=== PATIENT | female | born 1980 | race Caucasian/White ===

== ENCOUNTER 2017-09-12 18:22 | Emergency (ER) | payer BC ==
[2017-09-12] MEDS ORDERED: Sodium Chloride 0.9% 10 ML Syringe FLUSH PRN (19:07)
[2017-09-12] MEDS ORDERED: Sodium Chloride 0.9% 1,000 ML IV ONE (19:08)
--- NOTE | 2017-09-12 19:52 | EDM.PDOC ---
ED HPI GENERAL MEDICAL PROBLEM - General Chief Complaint: Abdominal Pain Stated Complaint: ABDOMINAL PAIN AND DISTENTION Time Seen by Provider: 09/12/17 18:45 Source of Information: Reports: Patient History Limitations: Reports: No Limitations - History of Present Illness INITIAL COMMENTS - FREE TEXT/NARRATIVE: Patient is a 37-year-old female presents ED complaining of generalized abdominal discomfort more associated to the left side of her abdomen. Has been present for the past 6 days. Was evaluated yesterday by her primary care provider Nasreen Rao with blood work and CT the abdomen and pelvis obtained. She was informed that there was inflammation to her colon and thus should return to the ED if she should have any worsening symptoms. Pain is persisted with no really significant increase noted. She is concerned because the pain is persisting. She does not clearly know what the diagnosis is. She's never had a colonoscopy. She is mildly nauseated at times. Last ate oatmeal this morning. Has been having multiple BMs and also passing gas. No blood present with her stool. She has taken may citrate yesterday and also this a.m. with no significant improvements. She does feel constipated and distended. She' s had no fever and or dysuria. She has a history of appendectomy and also depression. She is on nortriptyline, metoprolol tartrate, and Prozac. Denies being . Left Lower Abdomen Pain Score (Numeric/FACES): 10 - Related Data Allergies Allergy/AdvReac Type Severity Reaction Status Date / Time codeine Allergy Airway Verified 09/12/17 18:33 Tightness Home Meds: Home Meds FLUoxetine HCl [Prozac] 20 mg PO DAILY 09/12/17 [History] Metoprolol Tartrate 12.5 mg PO DAILY 09/12/17 [History] Multivitamin with Minerals [Multiple Vitamin] 1 cap PO DAILY 09/12/17 [History] Nortriptyline 75 mg PO DAILY 09/12/17 [History] Past Medical History Psychiatric History: Reports: Depression - Past Surgical History GI Surgical History: Reports: Appendectomy Social & Family History - Tobacco Use Smoking Status *Q: Former Smoker Used Tobacco, but Quit: Yes Month/Year Tobacco Last Used: one month Second Hand Smoke Exposure: No - Caffeine Use Caffeine Use: Reports: Coffee - Recreational Drug Use Recreational Drug Use: No ED ROS GENERAL - Review of Systems Review Of Systems: ROS reveals no pertinent complaints other than HPI. ED EXAM, GI/ABD - Physical Exam Exam: See Below Exam Limited By: No Limitations General Appearance: Alert, WD/WN, Mild Distress Eyes: Bilateral: Normal Appearance Ears: Hearing Grossly Normal Nose: Normal Inspection Throat/Mouth: Normal Voice, No Airway Compromise, Other (Moist oromucosa) Neck: Normal Inspection, Supple Respiratory/Chest: No Respiratory Distress, Lungs Clear, Normal Breath Sounds, No Accessory Muscle Use Cardiovascular: Normal Peripheral Pulses, Regular Rate, Rhythm GI/Abdominal Exam: Normal Bowel Sounds, Soft, No Organomegaly, No Distention, Tender (Generalized with increased focus noted to the left side of the abdomen.) Back Exam: Normal Inspection. No: CVA Tenderness (L), CVA Tenderness (R) Extremities: Normal Inspection Neurological: Alert, Oriented, CN II-XII Intact, Normal Cognition, No Motor/ Sensory Deficits Psychiatric: Normal Affect, Normal Mood Skin Exam: Warm, Dry, Intact, Normal Color, No Rash Course - Vital Signs Last Recorded V/S: Last Vital Signs Temp 98.1 F 09/12/17 18:29 Pulse 73 09/12/17 18:29 Resp 18 09/12/17 18:29 BP 124/65 09/12/17 18:29 Pulse Ox 100 09/12/17 18:29 - Orders/Labs/Meds Orders: Active Orders 24 hr Category Date Time Status Peripheral IV Care [RC] . DIRECTED Care 09/12/17 19:08 Active Abdomen 2V AP Flat Upright [CR] Stat Exams 09/12/17 19:07 Taken Sodium Chloride 0.9% [Normal Saline] 1,000 ml Med 09/12/17 19:08 Active IV ASDIRECTED Sodium Chloride 0.9% [Saline Flush] Med 09/12/17 19:07 Active 10 ml FLUSH ASDIRECTED PRN Peripheral IV Insertion Adult [OM.PC] Routine Oth 09/12/17 19:07 Ordered Medication Orders Sodium Chloride (Normal Saline) 1,000 mls @ 250 mls/hr IV ASDIRECTED ONE Stop: 09/12/17 23:07 Last Admin: 09/12/17 19:31 Dose: 250 mls/hr Sodium Chloride (Saline Flush) 10 ml FLUSH ASDIRECTED PRN PRN Reason: Keep Vein Open Last Admin: 09/12/17 19:31 Dose: 10 ml Labs: Laboratory Tests 09/12/17 09/12/17 09/12/17 Range/Units 19:20 19:20 20:11 WBC 5.18 (3.98-10.04) K/mm3 RBC 4.45 (3.98-5.22) M/mm3 Hgb 14.1 (11.2-15.7) gm/L Hct 42.8 (34.1-44.9) % MCV 96.2 H (79.4-94.8) fl MCH 31.7 (25.6-32.2) pg MCHC 32.9 (32.2-35.5) g/dl RDW Std Deviation 45.4 (36.4-46.3) fL Plt Count 179 L (182-369) K/mm3 MPV 9.5 (9.4-12.3) fl Neutrophils % (Manual) 56 (40-60) % Band Neutrophils % 0 (0-10) % Lymphocytes % (Manual) 35 (20-40) % Atypical Lymphs % 0 % Monocytes % (Manual) 6 (2-10) % Eosinophils % (Manual) 2 (0.7-5.8) % Basophils % (Manual) 1 (0.1-1.2) Platelet Estimate Adequate RBC Morph Comment Normal Sodium 144 (136-145) mEq/L Potassium 3.8 (3.5-5.1) mEq/L Chloride 105 (98-107) mEq/L Carbon Dioxide 28 (21-32) mEq/L Anion Gap 14.8 (5-15) BUN 7 (7-18) mg/dL Creatinine 1.0 (0.55-1.02) mg/dL Est Cr Clr Drug Dosing 79.72 mL/min Estimated GFR (MDRD) > 60 (>60) mL/min BUN/Creatinine Ratio 7.0 L (14-18) Glucose 91 (74-106) mg/dL Calcium 9.0 (8.5-10.1) mg/dL Total Bilirubin 0.6 (0.2-1.0) mg/dL AST 21 (15-37) U/L ALT 23 (14-59) U/L Alkaline Phosphatase 90 (46-116) U/L C-Reactive Protein 2.1 H* (<1.0) mg/dL Total Protein 8.0 (6.4-8.2) g/dl Albumin 4.4 (3.4-5.0) g/dl Globulin 3.6 gm/dL Albumin/Globulin Ratio 1.2 (1-2) Lipase 151 (73-393) U/L Urine Color Yellow (Yellow) Urine Appearance Clear (Clear) Urine pH 7.5 (5.0-8.0) Ur Specific [place] 1.015 (1.005-1.030) Urine Protein Negative (Negative) Urine Glucose (UA) Negative (Negative) Urine Ketones Negative (Negative) Urine Occult Blood Negative (Negative) Urine Nitrite Negative (Negative) Urine Bilirubin Negative (Negative) Urine Urobilinogen 0.2 (0.2-1.0) Ur Leukocyte Esterase Negative (Negative) Urine RBC 0-5 (0-5) /hpf Urine WBC 0-5 (0-5) /hpf Ur Epithelial Cells 0-5 (0-5) /hpf Urine Bacteria Few (FEW) /hpf Urine Mucus Not seen (FEW) /hpf Meds: Medications Generic Name Dose Route Start Last Admin Trade Name Freq PRN Reason Stop Dose Admin Sodium Chloride 1,000 mls @ 250 mls/hr 09/12/17 19:08 09/12/17 19:31 Normal Saline IV 09/12/17 23:07 250 mls/hr ASDIRECTED ONE Administration Sodium Chloride 10 ml 09/12/17 19:07 09/12/17 19:31 Saline Flush FLUSH 10 ml ASDIRECTED PRN Administration Keep Vein Open Discontinued Medications Generic Name Dose Route Start Last Admin Trade Name Freq PRN Reason Stop Dose Admin Ketorolac Tromethamine 30 mg 09/12/17 19:58 09/12/17 20:08 Toradol IVPUSH 09/12/17 19:59 30 mg ONETIME ONE Administration Tramadol HCl 50 mg 09/12/17 21:34 09/12/17 21:40 Ultram PO 09/12/17 21:35 50 mg ONETIME ONE Administration - Re-Assessments/Exams Free Text/Narrative Re-Assessment/Exam: Peripheral IV ordered. No saline 250 mL/h along with Toradol 30 mg IVP ordered. Patient refuses Dilaudid. She has had a codeine allergy. Initial labs and studies ordered will include CBC, chem 14, lipase, UA, CRP, and 2 view of the abdomen. X-ray of the abdomen reviewed with Dr. Talbot. Few air fluid levels present with no signs of obstruction. Labs reviewed: CBC essentially normal. Chemistry panel essentially normal. CRP 2.1. UA negative for infection. Obtain CT abdomen and pelvis with contrast results from yesterday reviewed impression: Circumscribed area of inflammation in the left pericolic gutter that is density. CT findings are compatible with epiploic appendicitis or omental infarct as an etiology for left-sided abdominal pain. No additional CT explanation for abdominal pain. Reviewed labs obtained yesterday. CBC and C14 essentially normal. Amylase 74. Lipase 24. Tissue transilluminates IgA antibody less than 0.5. Tissue transilluminates IgA interpretation negative. CRP 9.3 with reference range of less than 5.0 is normal. ESR 6. UA negative for any concerning findings. CEA 3.0 which is within normal limits. 2114 Reassessment, patient is resting more comfortably. Continues to have pain more to the left side of her abdomen. Discussed results of labs and x-ray findings with patient. Patient is concerned for possible obstruction. Offered to obtain CT of the abdomen and pelivs. Patient has refused to which I agree is appropriate since labs did not reveal any concerning findings. Patient has had tramadol in the past with no issues. Will order tramadol 50mg po here in the E.D. discharge instructions as documented. Departure - Departure Time of Disposition: 21:27 Disposition: Home, Self-Care 01 Condition: Good Clinical Impression: Epiploic appendagitis - Discharge Information Instructions: Abdominal Pain, Adult, [id number], Pain Medicine Instructions, [id number] Referrals: Nasreen Rao [employer] [Primary Care Provider] - Forms: ED Department Discharge Additional Instructions: Treatment is 600mg of ibuprofen every 6 hrs. May take tramadol 50mg every 6 hrs with tylenol 650mg as needed for severe pain. Do not drive this evening since receiving a sedative medication in the E.D. Do not drive while taking the tramadol. Followupwith PCP this coming Saturday for reevaluation. Return to the E.D. if you develop any new or worsening symptoms. - My Orders Last 24 Hours: My Active Orders 09/12/17 19:07 Abdomen 2V AP Flat Upright [CR] Stat Sodium Chloride 0.9% [Saline Flush] 10 ml FLUSH ASDIRECTED PRN Peripheral IV Insertion Adult [OM.PC] Routine 09/12/17 19:08 Peripheral IV Care [RC] . DIRECTED Sodium Chloride 0.9% [Normal Saline] 1,000 ml IV ASDIRECTED - Assessment/Plan Last 24 Hours: My Active Orders 09/12/17 19:07 Abdomen 2V AP Flat Upright [CR] Stat Sodium Chloride 0.9% [Saline Flush] 10 ml FLUSH ASDIRECTED PRN Peripheral IV Insertion Adult [OM.PC] Routine 09/12/17 19:08 Peripheral IV Care [RC] . DIRECTED Sodium Chloride 0.9% [Normal Saline] 1,000 ml IV ASDIRECTED
[2017-09-12] MEDS ORDERED: Ketorolac 30 MG/ML SDV IVPUSH ONE (19:58)
[2017-09-12] MEDS ORDERED: traMADol 50 MG Tab PO ONE (21:34)
--- NOTE | 2017-09-13 06:19 | CR ---
Abdomen: Supine and upright views of the abdomen were obtained. Comparison: No previous study. Air-fluid levels are seen within the small bowel and colon on the upright view. Bowel gas pattern is otherwise unremarkable. Surgical clips overlying the right iliac wing are seen. No free air is seen. Bony structures are unremarkable. IUD is present within the pelvis. Impression: 1. Mild air-fluid levels within small bowel and colon. Please correlate if patient has any symptoms to suggest gastroenteritis. 2. Other incidental findings. Diagnostic code #3
== END 2017-09-12 21:49 | disposition home or self-care (01) ==
LOC: JD.ED 18:22
DX: K63.89 Other specified diseases of intestine (principal); Z88.5 Allergy status to narcotic agent; Z79.899 Other long term (current) drug therapy; Z87.891 Personal history of nicotine dependence
CPT/HCPCS: 36415; 74019; 80053; 81001; 83690; 85025; 86140; 96361; 96374; 99284; A9270; J1885; J7040; J7050